=== PATIENT | male | born 2000 | race Caucasian/White ===

== ENCOUNTER 2023-07-25 08:29 | Day surgery (SDC) | payer OTHER, SELFPAY ==
[2023-07-25] VITALS (11 sets, daily range): BP systolic 121–143; BP diastolic 68–97; PULSE 57–88; RESP 16–20; TEMP 36.2–36.5; O2SAT 92–100; BMI 23.5
[2023-07-25] MEDS: LACTATED RINGERS 1000 ML 1,000 ML 100 ML IV (09:46)
[2023-07-25] MEDS: SODIUM CHLORIDE 0.9 % (FLUSH) 10 ML SYRINGE IVF (09:46)
--- NOTE | 2023-07-25 10:15 | W.ANESCHARGE ---
Anesthesia Charges Start Date/Time Anesthesia Start Date: 07/25/23 Anesthesia Start Time: 11:17 Stop Date/Time Anesthesia Stop Date: 07/25/23 Anesthesia Stop Time: 11:52
[2023-07-25] MEDS: OXYMETAZOLINE (AFRIN) SOAK 1 EACH TOPICAL (10:50)
[2023-07-25] MEDS: BUPIVACAINE 0.5 %/EPI 1:200K 30 ML INJECTION (11:28)
[2023-07-25] MEDS: COCAINE HCL 4 % 4 ML SOLUTION NOSTRIL-B (11:28)
--- NOTE | 2023-07-25 11:40 | W.PM.ENTPROC ---
Procedure Note Date of procedure: 07/25/23 Procedure: Preop diagnosis nasal obstruction, bilateral inferior turbinate hypertrophy Postoperative diagnosis same Procedure submucous partial resection inferior turbinates Under general endotracheal anesthesia patient was prepped and draped usual fashion the nose decongested in the inferior turbinates injected. Stab incision was made in the anterior of the right inferior turbinate a conservative anterior submucous resection performed. The Coblation was used to cauterize intramurally along the inferior 10%. This was repeated on the left side in identical fashion. Blood loss was less than 10 mL. The patient procedure well was taken recovery in satisfactory condition. Surgeon: Mansoor Ashby MD
--- NOTE | 2023-07-25 11:55 | W.ANESCHARGE ---
Anesthesia Charges Start Date/Time Anesthesia Start Date: 07/25/23 Anesthesia Start Time: 11:17 Stop Date/Time Anesthesia Stop Date: 07/25/23 Anesthesia Stop Time: 11:52
== END 2023-07-25 13:13 | disposition home or self-care (01) ==
LOC: OR 08:32
PROVIDERS: PCP Family Medicine; Visit Provider Otolaryngology
PROC: (CPT 30140; principal; 2023-07-25 10:15)
DX: J34.3 Hypertrophy of nasal turbinates (principal); J34.89 Other specified disorders of nose and nasal sinuses
CPT/HCPCS: 30140; 00160; A9270; J0330; J1100; J2250; J2405; J2704; J3010; J3490; J7120